=== PATIENT | female | born 1965 | race Caucasian/White ===

== ENCOUNTER 2019-10-30 15:11 | Emergency (ER) | payer OTHER ==
[~2019-10-30] VITALS: Ht 175.3 cm; Wt 54.5 kg
[2019-10-30 15:21] VITALS: TEMP 98.7
[2019-10-30] MEDS ORDERED: EXCEDRIN1 TAB PO (15:31)
[2019-10-30 15:38] LABS: GRAN # 4.1 (1.4-6.5); GRAN % 80.2 % (42.2-75.2); HEMATOCRIT 44.9 % (37.0-47.0); HEMOGLOBIN 14.7 g/dl (12.5-16.0); LYMPH # 0.6 (1.2-3.4); LYMPH % 11.1 % (20.0-51.0); MEAN CELL VOLUME 98 fl (80.0-100.0); MEAN CORPUSCULAR HEMOGLOBIN 32 pg (27.0-31.0); MEAN CORPUSCULAR HGB CONC 33 g/dl (33.0-37.0); MONO # 0.4 (0.1-0.6); MONO % 8.3 % (1.7-9.3); PLATELET COUNT 152 K/mm3 (130-400); RED BLOOD COUNT 4.59 M/mm3 (4.10-5.30); REDCELL DISTRIBUTION WIDTH-CV 13.2 % (11.5-14.5)
[2019-10-30 15:43] LABS: PROTHROMBIN TIME 12.1 SECONDS (9.7-12.8)
[2019-10-30 15:46] LABS: PARTIAL THROMBOPLASTIN TIME 31.4 SECONDS (26.0-37.0)
[2019-10-30 16:02] LABS: ALANINE AMINOTRANSFERASE 13 U/L (9-52); ALBUMIN 4.2 gm/dL (3.5-5.0); ALKALINE PHOSPHATASE 69 U/L (50-136); ANION GAP 14 mmol/L (7-16); AST,SGOT 33 U/L (15-37); BILIRUBIN,TOTAL 0.5 mg/dL (0.0-1.0); BLOOD UREA NITROGEN 15 mg/dL (7-17); CARBON DIOXIDE 20 mmol/L (22-30); CHLORIDE 107 mmol/L (98-107); CREATININE, serum 0.73 (0.52-1.25); GLUCOSE 95 mg/dL (74-106); POTASSIUM 3.9 mmol/L (3.4-5.0); SODIUM 141 mmol/L (137-145); TOTAL PROTEIN 7.5 gm/dL (6.4-8.2)
[2019-10-30 16:13] LABS: TROPONIN-I < 0.012 ng/mL (0.000-0.035)
[2019-10-30] MEDS ORDERED: ZITHROMAX Z PA250 MG PO (17:05)
[2019-10-30] MEDS ORDERED: TAMIFLU 75MG75 MG PO (17:05)
[2019-10-30 18:32] VITALS: BP 104/74; PULSE 82
== END 2019-10-30 18:32 | disposition home or self-care (01) ==
LOC: COL.ER 15:11
PROVIDERS: Family Medicine
DX: J10.1 Influenza due to other identified influenza virus with other respiratory manifestations (principal); J20.9 Acute bronchitis, unspecified; J43.9 Emphysema, unspecified; F17.210 Nicotine dependence, cigarettes, uncomplicated
CPT/HCPCS: J0456; J7050; Q9967

== ENCOUNTER 2021-06-18 15:31 | Emergency (ER) | payer OTHER ==
[~2021-06-18] VITALS: Ht 172.7 cm; Wt 50.0 kg
[~2021-06-18 15:31] MED LIST: EXCEDRIN1 TAB PO; TAMIFLU 75MG75 MG PO; ZITHROMAX Z PA250 MG PO
[2021-06-18 16:03] VITALS: TEMP 98
[2021-06-18] MEDS ORDERED: ASPERCREME1 EACH TP (16:58)
[2021-06-18] MEDS ORDERED: FLEXERIL 1010 MG/TAB PO (16:58)
[2021-06-18] MEDS ORDERED: NAPROSYN500 MG PO (16:58)
[2021-06-18 17:07] VITALS: BP 105/65; PULSE 88
== END 2021-06-18 17:09 | disposition home or self-care (01) ==
LOC: COL.ER 15:31
DX: M54.9 Dorsalgia, unspecified (principal); G43.909 Migraine, unspecified, not intractable, without status migrainosus; G89.29 Other chronic pain; F17.210 Nicotine dependence, cigarettes, uncomplicated; Z79.1 Long term (current) use of non-steroidal anti-inflammatories (NSAID)
CPT/HCPCS: J1200; J1885; J2765